=== PATIENT | female | born 1975 | race African-American/Black ===

== ENCOUNTER 2017-04-22 14:52 | Emergency (ER) | payer MEDICAID ==
[~2017-04-22] VITALS: Ht 157.5 cm; Wt 113.0 kg
[2017-04-22] MEDS ORDERED: KETOROLAC 30MG/ML VIAL IM ONE (16:45)
[2017-04-22] MEDS ORDERED: HYDROCODONE/ACETAMINOPHEN 5/325MG TABLET PO ONE (18:00)
[2017-04-22 18:24] VITALS: BP 130/72
== END 2017-04-22 18:24 | disposition home or self-care (01) ==
LOC: ER 15:15
DX: S93.402A Sprain of unspecified ligament of left ankle, initial encounter (principal); W10.8XXA Fall (on) (from) other stairs and steps, initial encounter; Y93.89 Activity, other specified; F17.200 Nicotine dependence, unspecified, uncomplicated; I10 Essential (primary) hypertension; E11.9 Type 2 diabetes mellitus without complications
CPT/HCPCS: 73610; 81025; 96372; 99284; J1885

== ENCOUNTER 2025-03-31 13:51 | Inpatient (IN) | payer MEDICAID ==
[~2025-03-31] VITALS: Ht 162.6 cm; Wt 121.6 kg
[2025-03-31 13:57] VITALS: O2SAT 98
[2025-03-31] MEDS ORDERED: SEMA1.7P (14:05)
[2025-03-31 14:57] LABS: BASOPHILS % 0.3 % (0.0-2.0); EOSINOPHILS % 0.2 % (0.0-5.0); HEMATOCRIT. 45.1 % (36.0-48.0); HEMOGLOBIN. 14.2 g/dL (12.0-16.0); LYMPHOCYTES % 20.5 % (20.0-50.0); MEAN PLATELET VOLUME 9.2 fl (7.4-10.4); MONOCYTES % 6.1 % (2.0-8.0); NEUTROPHILS % 72.9 % (40.0-76.0); PLATELET 466 x1000/uL (130-400); RED BLOOD CELL COUNT 6.22 mill/uL (4.2-5.4); RED CELL DISTRIBUTION WIDTH 17.5 % (11.6-14.6)
[2025-03-31 15:05] LABS: CREATININE 1.1 mg/dL (0.6-1.0); UREA NITROGEN BLOOD 13 mg/dL (9-23)
[2025-03-31 15:09] LABS: ASPARTATE AMINOTRANSFERASE 15 IU/L (<34); BILIRUBIN DIRECT 0.1 mg/dL (<=3.0); BILIRUBIN TOTAL 0.4 mg/dL (0.1-1.0); PROTEIN TOTAL 8.1 g/dL (6.0-8.3)
[2025-03-31] MEDS: ONDANSETRON HCL 4MG/2ML INJ IV ONE (15:30)
[2025-03-31] MEDS: METOCLOPRAMIDE HCL 10MG/2ML VIAL IV ONE (16:07)
[2025-03-31] MEDS: LACTATED RINGERS 1,000 ML IV SCH (16:07)
[2025-03-31] MEDS: FAMOTIDINE 20MG/2ML VIAL IV ONE (16:07)
[2025-03-31] MEDS: MORPHINE SULFATE 4 MG/ML INJ (FOR IV/IM USE) IV ONE (16:08)
[2025-03-31] MEDS: KCL 20MEQ/100ML PREMIX 100 ML IV SCH (16:08)
[2025-03-31] MEDS: POTASSIUM CHLORIDE 20MEQ/PACKET PO ONE (16:08)
[2025-03-31] MEDS ORDERED: MAGNESIUM/ALUMINUM HYDROXIDE/SIMETHICONE 30ML UDC PO PRN (16:15)
[2025-03-31] MEDS ORDERED: DEXTROSE 50% WATER 50ML SYRINGE IV PRN (16:15)
[2025-03-31] MEDS ORDERED: HYDROCODONE/ACETAMINOPHEN 5/325MG TABLET PO PRN (16:15)
[2025-03-31] MEDS ORDERED: ACETAMINOPHEN 325MG TABLET PO PRN (16:15)
[2025-03-31] MEDS: BLOOD SUGAR DIAGNOSTIC STRIP TEST SCH (17:00)
[2025-03-31 17:30] VITALS: BP 162/102; PULSE 78; RESP 18; TEMP 36.6; O2SAT 97
[2025-03-31] MEDS: HYDRALAZINE 20MG/ML VIAL IV PRN (18:12)
[2025-03-31] MEDS: MAGNESIUM 2 G PREMIX 50 ML IV ONE (19:29)
[2025-03-31 20:00] VITALS: BP_SYST 153; BP_SYST 160; BP_DIAS 101; PULSE 88; PULSE 92; RESP 18; RESP 20; TEMP 36.7516; TEMP 36.8; O2SAT 99
[2025-03-31] MEDS: INSULIN LISPRO 100 UNITS/ML SUBCUT SCH (21:00)
[2025-03-31] MEDS: DEXT 5%/0.45% NACL KCL 20MEQ/L 1,000 ML IV SCH (22:09)
[2025-03-31] MEDS: CLONIDINE 0.1MG TABLET PO PRN (22:09)
[2025-03-31] MEDS: ZOLPIDEM TARTRATE 5MG TABLET PO PRN (22:39)
[2025-04-01] VITALS: BP 115/76; PULSE 85; RESP 20; TEMP 36.7; O2SAT 97
[2025-04-01 01:41] LABS: CLARITY URINE CLEAR (CLEAR); COLOR URINE DARK YELLOW (YELLOW); GLUCOSE URINE NEGATIVE (NEGATIVE); KETONES URINE 2+ (NEGATIVE); LEUKOCYTE ESTERASE URINE NEGATIVE (NEGATIVE); NITRITE URINE NEGATIVE (NEGATIVE); OCCULT BLOOD URINE 3+ (NEGATIVE); PH URINE 6.0 (4.5-8.0); PROTEIN URINE 1+ (NEGATIVE); SPECIFIC GRAVITY URINE 1.038 (1.005-1.030); UROBILINOGEN URINE 1.0 E.U./dL (0.2-1.0)
[2025-04-01 01:43] LABS: *AMPHETAMINES SCREEN URINE NEGATIVE (NEGATIVE); *BARBITURATES SCREEN URINE NEGATIVE (NEGATIVE); *BENZODIAZEPINES SCREEN URINE NEGATIVE (NEGATIVE); *COCAINE SCREEN URINE NEGATIVE (NEGATIVE); METHADONE URINE SCREEN NEGATIVE (NEGATIVE); OPIATES URINE SCREEN PRESUMPTIVE POSITIVE (NEGATIVE); PHENCYCLIDINE URINE SCREEN NEGATIVE (NEGATIVE)
[2025-04-01 01:44] LABS: CANNABINOID URINE SCREEN PRESUMPTIVE POSITIVE (NEGATIVE); ECSTASY MDMA SCREEN URINE NEGATIVE (NEGATIVE)
[2025-04-01 02:08] LABS: AMORPHOUS SEDIMENT URINE 1+ /lpf; BACTERIA URINE 1+; SQUAMOUS EPITHELIAL CELL URINE 2+ /lpf (RARE/1+); WBC URINE 0-2 /hpf (0-2)
[2025-04-01 04:00] VITALS: BP 104/59; PULSE 79; RESP 20; TEMP 37; O2SAT 96
[2025-04-01] MEDS ORDERED: FLUT16SP15 (04:49)
[2025-04-01] MEDS ORDERED: SERT25TA74 PO (04:49)
[2025-04-01] MEDS ORDERED: METF-416 PO (04:49)
[2025-04-01] MEDS ORDERED: HYDR25TA PO (04:49)
[2025-04-01] MEDS ORDERED: METO25TA6 PO (04:49)
[2025-04-01] MEDS: ONDANSETRON HCL 4MG/2ML INJ IV PRN (06:27)
[2025-04-01] MEDS: DEXT 5%/0.45% NACL KCL 20MEQ/L 1,000 ML IV SCH (06:27)
[2025-04-01 08:00] VITALS: BP 150/93; PULSE 81; RESP 20; TEMP 36.2; O2SAT 100
[2025-04-01 08:04] LABS: BASOPHILS % 0.5 % (0.0-2.0); EOSINOPHILS % 0.3 % (0.0-5.0); HEMATOCRIT. 41.5 % (36.0-48.0); HEMOGLOBIN. 12.9 g/dL (12.0-16.0); LYMPHOCYTES % 19.8 % (20.0-50.0); MEAN PLATELET VOLUME 9.3 fl (7.4-10.4); MONOCYTES % 9.1 % (2.0-8.0); NEUTROPHILS % 70.3 % (40.0-76.0); PLATELET 333 x1000/uL (130-400); RED BLOOD CELL COUNT 5.66 mill/uL (4.2-5.4); RED CELL DISTRIBUTION WIDTH 17.3 % (11.6-14.6)
[2025-04-01 08:34] LABS: CREATININE 1.0 mg/dL (0.6-1.0); UREA NITROGEN BLOOD 13 mg/dL (9-23)
[2025-04-01] MEDS: PANTOPRAZOLE SODIUM 40 MG/VIAL IV SCH (09:36)
[2025-04-01] MEDS: KCL 20MEQ/100ML PREMIX 100 ML IV SCH (10:35)
[2025-04-01 12:00] VITALS: BP 159/98; PULSE 76; RESP 18; TEMP 36.1; O2SAT 99
[2025-04-01] MEDS ORDERED: NALOXONE HCL 0.4MG/ML VIAL IV PRN (14:15)
[2025-04-01] MEDS: SERTRALINE HCL 50MG TABLET PO SCH (14:27)
[2025-04-01] MEDS: HYDROMORPHONE HCL/PF 1MG/ML INJ IV PRN (14:28)
[2025-04-01] MEDS: METRONIDAZOLE 500 MG PREMIX 100 ML IV SCH (14:44)
[2025-04-01 16:00] VITALS: BP 150/98; PULSE 84; RESP 20; TEMP 36.3; O2SAT 99
[2025-04-01] MEDS: CEFTRIAXONE 1GM/50ML 50 ML IV SCH (16:50)
[2025-04-01 16:59] LABS: BASOPHILS % 0.9 % (0.0-2.0); EOSINOPHILS % 0.7 % (0.0-5.0); HEMATOCRIT. 39.2 % (36.0-48.0); HEMOGLOBIN. 12.2 g/dL (12.0-16.0); LYMPHOCYTES % 25.6 % (20.0-50.0); MEAN PLATELET VOLUME 9.4 fl (7.4-10.4); MONOCYTES % 7.1 % (2.0-8.0); NEUTROPHILS % 65.7 % (40.0-76.0); PLATELET 337 x1000/uL (130-400); RED BLOOD CELL COUNT 5.34 mill/uL (4.2-5.4); RED CELL DISTRIBUTION WIDTH 17.5 % (11.6-14.6)
[2025-04-01 17:18] LABS: CREATININE 1.0 mg/dL (0.6-1.0); UREA NITROGEN BLOOD 11 mg/dL (9-23)
[2025-04-01 20:23] VITALS: BP 135/75; PULSE 58; RESP 19; TEMP 36.5; O2SAT 97
[2025-04-01] MEDS ORDERED: POTASSIUM CHLORIDE 40 MEQ in DEXT 5% WATER 230 ML IV ONE (20:45)
[2025-04-01] MEDS: METOPROLOL TARTRATE 50MG TABLET PO SCH (21:00)
[2025-04-01] MEDS: POTASSIUM CHLORIDE 20MEQ/PACKET PO SCH (21:26)
[2025-04-01] MEDS: KCL 20MEQ/100ML X 2 FOR TOTAL KCL 40MEQ/200ML IV SCH (21:27)
[2025-04-02] VITALS: BP 129/62; PULSE 58; RESP 19; TEMP 36.6; O2SAT 98
[2025-04-02 04:11] VITALS: BP 137/68; PULSE 53; RESP 19; TEMP 36.4; O2SAT 93
[2025-04-02 06:48] LABS: BASOPHILS % 0.8 % (0.0-2.0); EOSINOPHILS % 1.5 % (0.0-5.0); HEMATOCRIT. 37.1 % (36.0-48.0); HEMOGLOBIN. 11.7 g/dL (12.0-16.0); LYMPHOCYTES % 25.6 % (20.0-50.0); MEAN PLATELET VOLUME 9.3 fl (7.4-10.4); MONOCYTES % 8.1 % (2.0-8.0); NEUTROPHILS % 64.0 % (40.0-76.0); PLATELET 306 x1000/uL (130-400); RED BLOOD CELL COUNT 5.05 mill/uL (4.2-5.4); RED CELL DISTRIBUTION WIDTH 17.0 % (11.6-14.6)
[2025-04-02 06:52] LABS: CREATININE 0.8 mg/dL (0.6-1.0)
[2025-04-02 06:54] LABS: UREA NITROGEN BLOOD 9 mg/dL (9-23)
[2025-04-02 08:00] VITALS: BP 128/65; PULSE 62; RESP 18; TEMP 36.4; O2SAT 95
[2025-04-02 12:00] VITALS: BP 135/62; PULSE 56; RESP 18; TEMP 36.6; O2SAT 95
[2025-04-02] MEDS: METOCLOPRAMIDE HCL 10MG/2ML VIAL IV SCH (15:46)
[2025-04-02 16:00] VITALS: BP 120/59; PULSE 70; RESP 18; TEMP 36.5; O2SAT 95
[2025-04-02] MEDS: SORBITOL 70% SOLN 30ML PO SCH (16:00)
[2025-04-02] MEDS: BISACODYL 5MG TABLET PO SCH (16:00)
[2025-04-02 20:20] VITALS: BP 145/82; PULSE 57; RESP 19; TEMP 36.9; O2SAT 98
[2025-04-03] VITALS (8 sets, daily range): BP systolic 127–192; BP diastolic 74–108; PULSE 56–89; RESP 19–20; TEMP 36.1–36.9; O2SAT 97–100
[2025-04-03] MEDS: SORBITOL 70% SOLN 30ML PO SCH (09:30)
[2025-04-03] MEDS: HYDROMORPHONE HCL/PF 1MG/ML INJ IV SCH (09:31)
[2025-04-03] MEDS: METOCLOPRAMIDE HCL 10MG/2ML VIAL IV SCH ×2 (09:41→13:00)
[2025-04-03] MEDS: NA PHOS,M-B/NA PHOS,DI-BA ENEMA 118ML PR NR (11:34)
[2025-04-03 12:14] LABS: PLATELET 340 x1000/uL (130-400); RED BLOOD CELL COUNT 5.34 mill/uL (4.2-5.4); RED CELL DISTRIBUTION WIDTH 17.1 % (11.6-14.6)
[2025-04-03 12:28] LABS: INR 1.1
[2025-04-03 12:29] LABS: CREATININE 0.8 mg/dL (0.6-1.0); UREA NITROGEN BLOOD < 5 mg/dL (9-23)
[2025-04-03 12:35] LABS: FOLIC ACID (FOLATE) SERUM 13.28 ng/mL (>5.38)
[2025-04-03 12:38] LABS: VITAMIN B12 SERUM 892 pg/mL (211-911)
[2025-04-03 13:09] LABS: HEPATITIS A AB IGM NEGATIVE (Negative); HEPATITIS B CORE AB IGM NEGATIVE (Negative)
[2025-04-03 13:10] LABS: HEPATITIS C AB NON REACTIVE (Neg) (Negative)
[2025-04-03] MEDS ORDERED: HYDR-4001 MT (14:10)
[2025-04-03] MEDS ORDERED: SUCR1TAB30 MT (14:10)
[2025-04-03] MEDS ORDERED: AMLO5TAB6 MT (14:10)
[2025-04-03] MEDS ORDERED: PROT40 MT (14:10)
[2025-04-03] MEDS ORDERED: PROPOFOL 200MG/20ML VIAL IV ONE ×3 (16:11→16:32)
[2025-04-04] VITALS (7 sets, daily range): BP systolic 124–151; BP diastolic 68–95; PULSE 58–83; RESP 16–20; TEMP 36.3–37.9; O2SAT 95–100
[2025-04-04] MEDS: SUCRALFATE 1G TABLET PO SCH (20:43)
[2025-04-05 10:06] LABS: ALPHA FETOPROTEIN TUMOR MARKER 4.3 ng/mL (0.0-6.4); CA 19-9 41.0 U/mL (0-35); CARCINOEMBRYONIC AG - SEND OUT 2.1 ng/mL (0.0-4.7)
== END 2025-04-04 20:45 | disposition home or self-care (01) | DRG 241 ==
LOC: ER 14:00 → 7WST 15:43 → EDBEDREQTM 15:49 → EDBEDREQSVC 15:49 → EDBEDREQ 15:49
PROVIDERS: ADMIT Internal Medicine; ATTEND Internal Medicine
PROC: 0DB78ZX Excision of Stomach, Pylorus, Via Natural or Artificial Opening Endoscopic, Diagnostic (ICD-10-PCS; principal; 2025-04-04)
PROC: 0DJD8ZZ Inspection of Lower Intestinal Tract, Via Natural or Artificial Opening Endoscopic (ICD-10-PCS; 2025-04-04)
DX: K29.70 Gastritis, unspecified, without bleeding (principal); R16.0 Hepatomegaly, not elsewhere classified; D50.9 Iron deficiency anemia, unspecified; D72.829 Elevated white blood cell count, unspecified; E11.9 Type 2 diabetes mellitus without complications; F12.90 Cannabis use, unspecified, uncomplicated; K20.90 Esophagitis, unspecified without bleeding; I10 Essential (primary) hypertension; K57.30 Diverticulosis of large intestine without perforation or abscess without bleeding; K76.0 Fatty (change of) liver, not elsewhere classified
CPT/HCPCS: 36415; 74176; 76700; 80048; 80076; 80305; 81003; 82105; 82378; 82607; 82728; 82746; 82962; 83540; 83550; 83735; 84443; 85025; 85027; 86301; 86705; 86709; 86850; 86900; 87340; 88305; 88312; 88313; 93005; 93970; 96374; 99291; A4606; J0360; J0696; J1171; J1308; J1815; J2270; J2405; J2470; J2704; J2765; J3475; J3480; J3490